=== PATIENT | female | born 1930 | race Caucasian/White ===

== ENCOUNTER 2017-10-08 10:13 | Emergency (ER) | payer MEDICARE, OTHER ==
[~2017-10-08] VITALS: Ht 157.5 cm; Wt 64.0 kg
[~2017-10-08 10:13] MED LIST: ACETAMINOPHEN325 M1 PO; ACETAMINOPHEN650 MG PO; ASPIRIN81 MG PO; B-100 COMPLEX1 EACH PO; CIPRO500 MG PO; CITRACAL + D E1 EACH PO; CRANBERRY200 MG PO; CULTURELLE1 EACH PO; LORAZEPAM0.5 MG PO; LYRICA50 MG PO; MELATONIN3 MG PO; METAMUCIL POWD174 GM PO; METRONIDAZOLE250 MG PO; MICARDIS40 MG PO; MULTIPLE VITAM1 EAC1 PO; PANTOPRAZOLE SO40 MG PO; PROCALAMINE I1000 ML IV; RANITIDINE HCL300 MG PO; SYNTHROID88 MCG PO
[2017-10-08] MEDS ORDERED: ASPIRIN 81 MG CHEW TAB PO ONE (12:00)
[2017-10-08 12:39] LABS: CREATINE KINASE 123 IU/L (29-168)
[2017-10-08] MEDS ORDERED: CIPROFLOXACIN 500 MG TAB PO SCH (17:00)
== END 2017-10-08 13:19 | disposition home or self-care (01) ==
LOC: FSED 10:13
DX: R07.89 Other chest pain (principal); N30.90 Cystitis, unspecified without hematuria; I10 Essential (primary) hypertension
CPT/HCPCS: 36415; 70450; 71046; 80053; 81003; 82550; 82553; 84484; 85025; 99285

== ENCOUNTER → 2017-10-25 | Outpatient (CLI) | payer MEDICARE, OTHER ==
--- NOTE | 2017-10-25 12:15 | Diagnostic Imaging Report ---
PROCEDURE:X-RAY PELVIS, AP VIEW COMPARISON:None. INDICATIONS:HEMATOMA, FALL FINDINGS: There are no fractures, dislocations, lytic or blastic lesions. The bones are well-mineralized. The soft-tissues are unremarkable. CONCLUSION: No acute radiographic abnormalities. Dictated by: Thierno Mendosa M.D. on 10/25/2017 at 12:20 Electronically approved by: Thierno Mendosa M.D. on 10/25/2017 at 12:20
--- NOTE | 2017-10-25 12:32 | Diagnostic Imaging Report ---
PROCEDURE:X-RAY UNILATERAL RIBS WITH CHEST X-RAY COMPARISON:Chest radiograph 01/15/17. INDICATIONS:FALL, RIGHT SIDED RIB PAIN FINDINGS: Lines/tubes: None. Lungs: Left lower lung opacity likely related to atelectasis or scarring. Patchy right basilar opacity adjacent to the rib fractures. Pleura: Trace right pleural effusion. No evidence of pneumothorax. Heart and mediastinum: The heart and the mediastinum are unremarkable. Bones and soft tissues: Dedicated right rib radiographs demonstrate minimally displaced fractures of the right eighth through tenth ribs laterally. CONCLUSION: Minimally displaced fractures of the right eighth through tenth ribs laterally with adjacent trace pleural effusion. No evidence of pneumothorax. Patchy right basilar opacity could represent atelectasis or contusion. Dictated by: DA PITT M.D. on 10/25/2017 at 12:37 Electronically approved by: DA PITT M.D. on 10/25/2017 at 12:37
== END ==
LOC: RAD 11:14
PROVIDERS: ATTEND Internal Medicine
DX: R07.89 Other chest pain (principal); W18.39XA Other fall on same level, initial encounter
CPT/HCPCS: 71101; 72170

== ENCOUNTER → 2017-11-16 | Outpatient (CLI) | payer MEDICARE ==
--- NOTE | 2017-11-16 15:47 | Diagnostic Imaging Report ---
CT Abdomen and Pelvis without contrast INDICATION: Renal calculus, recurrent UTIs TECHNIQUE: Thin collimation axial images obtained from the diaphragm to the level of the pubic symphysis without nonionic intravenous contrast. RADIATION DOSE: Total DLP: 247.63 mGy*cm Estimated effective dose: (DLP x 0.015 x size factor) mSv CTDIvol has been reviewed. It is below the limits set by the Radiation Protocol Committee (RPC). COMPARISON: CT abdomen/pelvis 04/29/2014. ABDOMEN FINDINGS: Lung Bases: Bibasilar chronic subsegmental atelectasis/scar. The heart is top normal in size.. No pericardial or pleural effusions. There is a small hiatal hernia. Liver: Normal in attenuation without mass. Gallbladder: Present and appears normal. No ductal dilatation. Pancreas: Normal attenuation without mass. Spleen: Normal size without mass. Adrenal Glands: Mild thickening of the adrenal glands without discrete nodule.. Kidneys: Right: Calculus in the lower pole measures 2 mm. No cortical mass or hydronephrosis Left: No renal calculus. Lesion in the lateral interpolar cortex measures 14 mm and 18 Hounsfield units suggestive of a cyst. This is stable. No hydronephrosis Lymph Nodes: No enlarged abdominal or periaortic lymph nodes. Aorta: Normal in diameter with scattered calcifications. PELVIS FINDINGS: Bowel: Stomach: Normal. Small Bowel: Normal in caliber with normal wall thickness. Large Bowel: Diffuse diverticulosis coli. There is mural thickening of the rectosigmoid portion of the colon without associated inflammation. No inflammation surrounding the diverticula elsewhere in the large bowel. Appendix: Not visualized and may be absent or collapsed. Bladder: No mural thickening. There is a tiny amount of intraluminal air at the dome. Ureters: No ureteral dilatation or calculus. The uterus is present and normal in morphology. No adnexal mass. Lymph nodes: No enlarged mesenteric or pelvic lymph nodes. No free fluid or fluid collection. There is laxity of the pelvic floor with inferior displacement of the pelvic organs.. Bones: Mild degenerative changes of the spine. Circumferential disc bulges throughout the lumbar spine most significant from L3-4 to L5-S1. Several perineural cysts in the sacrum are stable. No evidence of hernia. IMPRESSION: 1. Tiny right intrarenal calculus. No obstructive uropathy. Tiny amount of air in the liver dome may be from recent instrumentation or gas forming organism. 2. Diverticulosis coli. No evidence for bowel obstruction or inflammation. Small hiatal hernia. 3. Pelvic floor laxity. This is poorly evaluated by CT. Further evaluation can be made with MRI to identify the presence of a cystocele. Signed by: Dr. Ezra Rojas MD on 11/16/2017 3:44 PM
== END ==
LOC: CT 14:03
PROVIDERS: ATTEND Urology
DX: N20.0 Calculus of kidney (principal)
CPT/HCPCS: 74176

== ENCOUNTER 2018-03-30 08:57 | Observation (INO) | payer MEDICARE, OTHER ==
[~2018-03-30] VITALS: Ht 157.5 cm; Wt 55.8 kg
[2018-03-30] MEDS ORDERED: ASPIRIN 81 MG CHEW TAB PO STA (09:49)
--- NOTE | 2018-03-30 10:20 | Diagnostic Imaging Report ---
EXAMINATION: CXR 2 VIEW - [facility] INDICATION: Chest pain. COMPARISON: Chest radiograph 01/15/17. FINDINGS: TUBES and LINES: None. LUNGS/PLEURA: Lungs are well inflated. No evidence of pulmonary edema. Possible trace left pleural effusion. Mild patchy left basilar opacity. HEART AND MEDIASTINUM: The cardiomediastinal silhouette is unremarkable. Atherosclerotic calcifications of the aortic arch. BONES AND SOFT TISSUES: Diffuse osteopenia. No evidence of acute displaced fracture. There are likely two healing subacute fractures of the right lower lateral ribs. UPPER ABDOMEN: No free air under the diaphragm. IMPRESSION: Patchy left basilar opacity which could represent or scarring. Possible trace left pleural effusion. Diffuse osteopenia with subacute right lower lateral healing rib fractures. No evidence of acute displaced fracture. Signed by: Dr. Frannie Rizzo MD on 03/30/2018 10:17 AM
--- NOTE | 2018-03-30 10:22 | Diagnostic Imaging Report ---
CT BRAIN [facility] HISTORY: Dizziness COMPARISON: Head CT 11/01/2013; report from head CT dated 11/04/2015 Technique: Noncontrast axial scans were obtained from skull base to the vertex. Coronal and sagittal reconstructions obtained from the axial data. One or more of the following dose reduction techniques were used: Automated exposure control, adjustment of the mA and/or kV according to patient size, and/or utilization of iterative reconstruction technique. DISCUSSION: Scalp/Skull: Unremarkable. Brain sulci: Mildly prominent. Ventricles: Compensatory dilatation. Extra-axial spaces: No masses or fluid collections. Carotid siphon calcifications are present. Parenchyma: Mild bilateral deep white matter hypodensity is likely chronic microvascular ischemic change. Small focal hypodensity in the right putamen at the level of the anterior commissure is likely a prominent perivascular space. Otherwise, no masses, hemorrhage, or large vascular territory acute infarct. Dural sinuses: No abnormal densities. Sellar/Suprasellar region: Intact. Skull base: Intact. Incidental findings: Both ocular lenses are thinned. Trace right mastoid effusion is present. IMPRESSION: 1. No acute intracranial abnormalities. 2. Mild supratentorial chronic microvascular ischemic change. Mild generalized cerebral volume loss. Signed by: Dr. Luis Eduardo Dunn M.D. on 03/30/2018 10:18 AM
[2018-03-30] MEDS ORDERED: MORPHINE SULFATE 2 MG/ML SYR IV PRN (11:00)
[2018-03-30] MEDS ORDERED: SODIUM CHLORIDE FLUSH 10 ML SYR INJ PRN (11:00)
[2018-03-30] MEDS ORDERED: NITROGLYCERIN 0.4 MG SUBL SL PRN (11:00)
[2018-03-30] MEDS ORDERED: ONDANSETRON HCL INJ 2 MG/ML VIAL IV PRN (11:00)
[2018-03-30] MEDS ORDERED: ASPIRIN 81 MG CHEW TAB PO ONE (11:00)
--- NOTE | 2018-03-30 11:05 | NUR ---
Dr. Reveles informed of pt BP, stated ok for pt to take her home medications which includes a BP medication, Pt stated she hand not taken yet today.
[2018-03-30] MEDS ORDERED: MORPHINE SULFATE INJ 4 MG/ML INJ IV PRN (11:30)
[2018-03-30] MEDS ORDERED: FAMOTIDINE 20 MG/2 ML VIAL IV SCH (11:30)
--- NOTE | 2018-03-30 11:30 | NUR ---
ROCIO Andrade notified that we received a call from the ED stating that Dr. Peng's group was there to see the pt but the pt is at the [facility]. Informed her to call them when pt arrives on the unit so they could come back and see the pt. RN verbalized understanding.
--- NOTE | 2018-03-30 11:30 | NUR ---
ROCIO Andrade notified that pt needs a telemetry box when she arrives to the hospital. RN verbalized understanding.
[2018-03-30] MEDS ORDERED: PANTOPRAZOLE SO40 MG PO (11:45)
[2018-03-30] MEDS ORDERED: VITAMIN D31000 UNI1 PEG (11:45)
[2018-03-30] MEDS ORDERED: RANITIDINE HCL150 MG PO (11:45)
--- NOTE | 2018-03-30 12:19 | NUR ---
RCD PT BY STRETCHER FROM [facility] ER PT IS ALERT AND ORIENTED VITALS CHECKED PT RESTING ON BED NO SIGNS OF ANY DISTRESS NOTED VITALS CHECKED ADMISSION ASSESSMENT AND HISTORY DONE FAMILY AT BED SIDE INSTRUCTED PT AND FAMILY REGARDING HOSPITAL POLICY AND ROUTINE BED LOW AND LOCKED CALL LIGHT IN REACH BED LOW AND LOCKED CALL LIGHT IN REACH
[2018-03-30 12:43] VITALS: BP 172/77
[2018-03-30 14:56] VITALS: BP 119/69
[2018-03-30 15:13] VITALS: BP 119/69
[2018-03-30 16:54] LABS: CREATINE KINASE MB 0.9 ng/mL (0-5.0)
--- NOTE | 2018-03-30 16:55 | Consultation ---
DATE OF CONSULTATION: March 30, 2018 CARDIAC CONSULTATION REASON FOR CONSULTATION: Lower retrosternal chest pain, . The patient is a poor historian, but she is very delightful. HISTORY: An 87-year-old old lady who is known with hypertension, hypothyroidism and chronic GERD. We evaluated her in July 2016. At that time, she complained of episodic dizzy spells. Her Holter showed no malignant arrhythmia. Her echocardiogram showed preserved left ventricular systolic function. Plan was for observation and evaluate her progress. It seems in December 2016 she had rectal bleed and she was admitted to this institution. She was seen and evaluated by Dr. Wells, and she is followed in his office. A week ago, she had lower retrosternal and more of epigastric heartburn like symptoms. She was given Protonix. Yesterday, she had repeat of this pain. This is lower retrosternal and very vague in characteristic. Possible burn. Possible dull. She cannot describe it. She was worried about it. She went to the local emergency room and her 1st set of cardiac enzymes is normal. Her hemoglobin is 12.8 and hematocrit 39%. She denied having any hematemesis. No melena. There is no nausea. No vomiting. The pain is very dull. She cannot describe. There is no recent travel. The patient is not staying most of the time in bed. She is ambulatory. HOME MEDICATIONS 1. Aspirin 81 mg a day. 2. Benicar 20 mg twice a day. 3. Synthroid 80 mcg a day. 4. Protonix 40 mg a day. 5. Lorazepam 1 mg p.r.n. 6. Lyrica 75 mg a day. 7. Vitamins. 8. Metamucil as needed. ALLERGIES: MORPHINE AND SULFA. PAST MEDICAL HISTORY 1. Hypertension. 2. Hypothyroidism. 3. Dizzy spells. 4. Peripheral neuropathy. 5. Arthritis. 6. Anxiety. 7. Tonsillectomy. 8. Appendectomy. 9. thyroidectomy with partial parathyroidectomy. 10. Kidney stone. 11. Cataract surgery. 12. Colon surgery blockage. 13. History of tracheostomy, probably at the time of her thyroidectomy and parathyroidectomy. SOCIAL HISTORY: She is a . She is nonsmoker. She is not an alcohol drinker. She is retired. REVIEW OF SYSTEMS GENERAL: No fever. No chills. She is ambulatory. She is able to do her activities. No weight loss. HEENT: Remarkable for decreased hearing. She uses hearing aids. PULMONARY: As per acute illness. CARDIAC: As per acute illness. No syncope. No presyncope. No angina. GI: Remarkable for GERD symptoms and hemorrhoids at times. HEMATOLOGY: No easy bruising or bleeding. : No hematuria. No dysuria. MUSCULOSKELETAL: Knee pain. PERIPHERAL VASCULAR: Leg swelling, mainly at the end of the day. NEUROLOGICAL: No speech abnormality. No headache. FAMILY HISTORY: Mother of old age at age 95. Father at age 66 with cerebral hemorrhage. Two children, 1 son and 1 daughter. PHYSICAL EXAMINATION VITALS: Height of 5 feet 2 inches, weight of 127 pounds, blood pressure 120/70, heart rate of 80, respiratory rate of 18, afebrile. HEENT: Pupils are reactive. Decreased hearing is noted. NECK: No elevation of jugular venous pulsation. No bruit. CHEST: Clear to auscultation and percussion. HEART: PMI in 5th left intercostal space. Normal 1st and 2nd heart sounds. There is an early systolic murmur. ABDOMEN: Soft with good bowel sounds. No organomegaly. No abdominal bruits. EXTREMITIES: No cyanosis. No clubbing. No edema. NEUROLOGIC: Awake, alert and oriented. Able to move her extremities at ease. No localized deficits. IMPRESSION AND PLAN 1. Chest pain: Seems to be atypical. 2. History of presyncope and dizzy spells. 3. Dyspnea on exertion. 4. Hypertension. 5. Unsteady gait: Patient uses a cane to walk. Cardiac lazo, recommendation is serial cardiac enzymes. Keeping patient on telemetry. Checking stool for occult blood and repeating lab in the morning, including CBC, lipid profile, etc. Differential diagnosis is discussed and explained. Questions are answered. Job#: [id number] ABDIRAHMAN
[2018-03-30] MEDS ORDERED: NON-FORMULARY MEDICATION (Ranitidine Hcl 300 MG) PO SCH (17:00)
[2018-03-30] MEDS ORDERED: LORAZEPAM 0.5 MG TAB PO SCH (17:00)
[2018-03-30] MEDS: TELMISARTAN 40 MG TAB PO SCH (17:00)
[2018-03-30 17:03] VITALS: BP 189/79
[2018-03-30] MEDS: PREGABALIN 50 MG CAP PO SCH (17:10)
[2018-03-30] MEDS ORDERED: LORAZEPAM 1 MG TAB PO PRN (17:15)
[2018-03-30] MEDS: FAMOTIDINE 20 MG TAB PO SCH (17:30)
--- NOTE | 2018-03-30 18:08 | History and Physical ---
CHIEF COMPLAINT: Chest pain. HISTORY OF PRESENT ILLNESS: This is an 87-year-old white woman who presents to [facility] with 1 week history of non-radiating retrosternal chest discomfort. Patient states she suffered a mechanical fall the day before the chest pain began. Patient states she may have struck her chest wall on an object during her fall. The patient denies any associated shortness of breath or cough. She also denies any nausea or diaphoresis. A 12-lead EKG done in the emergency room did not reveal any acute changes. Initial cardiac enzymes are completely normal. Patient was seen by cardiology, Dr. Bari Peng, who recommended that we do serial cardiac enzymes. Chest x-ray revealed possible left trace pleural effusion with patchy left basilar opacity, but these are chronic findings. The patient also underwent a CT of the brain that did not reveal any acute intracranial abnormalities. Patient was admitted for further issues. REVIEW OF SYSTEMS GENERAL: Weight has been stable. She denies any fever or chills. HEENT: No headaches. No visual changes. CARDIOVASCULAR/RESPIRATORY: Chest pain as per HPI. No shortness of breath or cough. GI: No nausea, vomiting, diarrhea, or constipation, but she does have great symptoms. : No UTI. NEUROMUSCULAR: Complains of peripheral neuropathic pain in her feet. ALLERGIES SULFA ANTIBIOTICS AND MORPHINE. HOME MEDICATIONS 1. Pantoprazole 40 mg every morning. 2. Ranitidine 150 mg twice a day. 3. Lyrica 50 mg every night. 4. Telmisartan 20 mg b.i.d. 5. Nitroglycerin 0.4 mg 1 every 5 minutes p.r.n. chest pain. 6. Clonazepam 1 mg at night as needed for anxiety or insomnia. 7. Multivitamins daily. 8. Vitamin B complex 9. Vitamin D3 1000 units daily. 10. Cranberry oral capsules daily. PAST MEDICAL HISTORY 1. Peripheral neuropathy. 2. Chronic Headaches. 3. Hypertensive heart disease. 4. Diverticular disease. 5. Hiatal hernia. 6. History of kidney stones. 7. Insomnia. 8. Anxiety disorder. 9. Hypothyroidism. SURGICAL HISTORY 1. Exploratory laparotomy with sigmoid resection in 2010. 2. Thyroidectomy. 3. Parathyroidectomy. 4. Bladder surgery. 5. Kidney stone removal. 6. Cataract surgeries. 7. Tonsillectomy. 8. Bilateral tubal ligation. FAMILY HISTORY: Noncontributory. SOCIAL HISTORY: This woman is a . She currently lives alone. The adult daughter is present and states this time they are attempting to place the patient in assisted living facility. Patient has no history of tobacco or alcohol use. Patient adult son and adult daughter are very much involved in her health care. PHYSICAL EXAMINATION GENERAL: She is awake, alert and fully oriented. She is very pleasant, but she does seem to get confused easily. VITALS: Her blood pressure is 132/77, pulse 78, respiratory rate is 18, oxygen saturation 98%, temperature 96.9, height is 5 feet 2 inches, weight is 127 pounds, and BMI 23. INTEGUMENT: Skin is warm and dry. No pallor or diaphoresis. HEENT: Anicteric sclerae. Moist mucous membranes. NECK: Supple. CARDIOVASCULAR: Distant heart sounds. Regular rate and rhythm. LUNGS: No rales. No rhonchi. No wheezing. SPINE/TORSO: Patient has tenderness on palpating the sternal area. She also has minimal bruising just to the left of the sternum. ABDOMEN: Benign. Normal bowel sounds. Nontender. Negative Deluca sign when palpated in the right upper quadrant area. EXTREMITIES: No edema or deformity. DIAGNOSES 1. Atypical chest pain. 2. Gastroesophageal reflux disease. 3. Hypertensive heart disease. PLAN 1. Reassurance. 2. Empathetic listening. 3. Rule out myocardial infection. 4. Follow cardiology's recommendation. 5. Gentle blood pressure controlled. 6. Continue anti-GERD medication. We will most likely discharge home in the morning. I spent 45 minutes in the care of this patient. Job#: [id number] YELENA ALONZO
--- NOTE | 2018-03-30 18:48 | NUR ---
PT RESTING ON BED BED SIDE REPORT GIVEN TO INCOMING NURSE
[2018-03-30 20:00] VITALS: BP 173/74
[2018-03-30 23:01] LABS: CREATINE KINASE MB 0.7 ng/mL (0-5.0)
[2018-03-31 00:40] VITALS: BP 126/61
[2018-03-31 03:40] VITALS: BP 136/65
[2018-03-31 05:02] LABS: BASOPHILS # (AUTO) 0.1 (0.0-0.1); BASOPHILS % 0.6 % (0.0-1.0); EOSINOPHILS # (AUTO) 0.2 (0.0-0.4); EOSINOPHILS % 2.6 % (0.0-6.0); HEMATOCRIT 34.7 % (34.2-44.1); HEMOGLOBIN 11.8 g/dL (12.0-16.0); LYMPHOCYTES # (AUTO) 1.2 (1.0-3.2); MEAN CORPUSCULAR HEMOGLOBIN 29.1 pg (28-32); MEAN CORPUSCULAR VOLUME 85.7 fL (81-99); MONOCYTES # (AUTO) 0.8 (0.2-0.8); MONOCYTES % 8.2 % (4.4-11.3); NEUTROPHILS % 74.8 % (38.7-80.0); PLATELET COUNT 220 x10e3/uL (140-360); RED BLOOD COUNT 4.05 x10e6/uL (3.6-5.1); RED CELL DISTRIBUTION WIDTH 13.7 % (11.7-14.4)
[2018-03-31 05:20] LABS: ALANINE AMINOTRANSFERASE 13 IU/L (0-55); ALBUMIN 3.1 g/dL (3.5-5.0); ALKALINE PHOSPHATASE 78 IU/L (40-150); ANION GAP 13.1 mmol/L (8-16); BLOOD UREA NITROGEN 11 mg/dL (7-26); BUN/CREATININE RATIO 14 (6-25); CALCIUM 9.3 mg/dL (8.4-10.2); CARBON DIOXIDE 25 mmol/L (22-29); CHLORIDE 101 mmol/L (98-107); CREATININE, SERUM 0.81 mg/dL (0.57-1.11); EST GLOMERULAR FILTRATION RATE > 60 ML/MIN (60-); GLUCOSE 89 mg/dL (74-118); POTASSIUM 4.1 mmol/L (3.5-5.1); SODIUM 135 mmol/L (136-145)
[2018-03-31 05:38] LABS: CHOLESTEROL 197 MD/DL (0-199); CREATINE KINASE 76 IU/L (29-168); HDL CHOLESTEROL 65 MG/DL (40-60); LDL CHOLESTEROL 114 MG/DL (60-130); TRIGLYCERIDES 89 MG/DL (0-149)
[2018-03-31] MEDS ORDERED: LEVOTHYROXINE SODIUM 88 MCG TAB PO SCH ×2 (06:00)
[2018-03-31] MEDS: PANTOPRAZOLE SOD 40 MG TABEC PO SCH ×2 (06:07→06:08)
--- NOTE | 2018-03-31 07:00 | NUR ---
RCD PT AT BED PT IS ALERT AND ORIENTED PT RESTING ON BED NO SIGNS OF ANY DISTRESS NOTED IV PATENT BED LOW AND LOCKED CALL LIGHT IN REACH
[2018-03-31] MEDS ORDERED: PANTOPRAZOLE SOD 40 MG TABEC PO SCH ×2 (07:30→09:00)
[2018-03-31 08:22] VITALS: BP 126/57
[2018-03-31] MEDS: TELMISARTAN 40 MG TAB PO SCH (08:27)
[2018-03-31] MEDS: FAMOTIDINE 20 MG TAB PO SCH (08:28)
[2018-03-31 08:30] VITALS: BP 126/57
[2018-03-31] MEDS ORDERED: PREGABALIN 50 MG CAP PO SCH (09:00)
[2018-03-31] MEDS ORDERED: ASPIRIN 81 MG ENTERIC COATED PO SCH (09:00)
[2018-03-31] MEDS ORDERED: CHOLECALCIFEROL 1,000 UNIT TAB PO SCH (09:00)
--- NOTE | 2018-03-31 10:23 | NUR ---
Met earlier with pt and her family. Educated on [employer] letter and they verbalized understanding and signed. Signed copy to pt, original to chart. They were not happy with being observation due to costs. They hope to go home today
[2018-03-31 12:18] VITALS: BP 149/74
[2018-03-31] MEDS: PREGABALIN 50 MG CAP PO SCH (13:00)
--- NOTE | 2018-03-31 14:07 | NUR ---
PT WENT HOME IN SAFE CONDITION WITH HER DAUGHTER
--- NOTE | 2018-03-31 14:25 | Discharge Summary ---
ADMISSION DIAGNOSES 1. Atypical chest pain. 2. Hypertensive heart disease. 3. Gastroesophageal reflux disease. 4. Peripheral neuropathy. 5. Vertigo. DISCHARGE DIAGNOSES 1. Atypical chest pain, resolved. 2. Gastroesophageal reflux disease. 3. Hypertensive heart disease. 4. Peripheral neuropathy. 5. Vertigo with right middle ear effusion. HOSPITAL COURSE: This is an 87-year-old white woman who was initially admitted to [facility] with the diagnosis of atypical chest pain. She also has episodes of dizziness and possible presyncopal symptoms. She has also recently been diagnosed with vertigo with right-sided middle ear effusion. Moreover, she was found to have severe GERD type symptoms. Thus, she was started on pantoprazole every morning and ranitidine 150 mg twice a day. During this hospitalization, patient had serial cardiac enzymes as well as electrocardiogram done, which did not reveal any evidence of acute myocardial ischemia or infarction. Patient was seen by her technical instructor, Dr. Angel Taveras. The technical instructor agreed with the current plan of care. Patient's blood pressure was controlled during this hospitalization with her home medications. On the day of discharge, patient's complete blood count and comprehensive metabolic profile were all within normal limits. Serial cardiac enzymes did not reveal any evidence of acute myocardial ischemia or infarction as previously stated. TSH was slightly low at 0.239. LDL cholesterol was 114 mg/dL. Patient's B-type natriuretic peptide level was normal at 71. Patient had a chest x-ray done on admission which revealed old patchy left basilar opacity that was likely scarring. CT of the head during this hospitalization did not reveal any acute intracranial abnormality. CONDITION ON DISCHARGE: Stable. DISCHARGE MEDICATIONS 1. Ranitidine 150 mg twice a day. 2. Vitamin D3 2000 units daily. 3. Telmisartan 20 mg b.i.d. 4. Levothyroxine 88 mcg daily. 5. Pregabalin 50 mg daily. 6. Pantoprazole 40 mg every morning (30 minutes before her first meal a day). 7. Lorazepam 1 mg daily as needed for anxiety. 8. Meclizine 25 mg b.i.d. p.r.n. dizziness. 9. Multivitamin once daily. 10. Vitamin B complex once daily. 11. Cranberry oral capsule once daily. FOLLOWUP INSTRUCTIONS: Patient is instructed to follow up with Dr. Lindquist in the next 2 to 3 weeks. KARISSA LINDQUIST MD Job#: [id number] YOBANY cc:ANGEL TAVERAS MD
== END 2018-03-31 14:07 | disposition home or self-care (01) ==
LOC: FSED 08:57 → ERHOLD 10:49 → MED/SURG2 12:39
PROVIDERS: ADMIT Internal Medicine; ATTEND Internal Medicine
DX: R07.89 Other chest pain (principal); E03.9 Hypothyroidism, unspecified; G62.9 Polyneuropathy, unspecified; K21.9 Gastro-esophageal reflux disease without esophagitis; Z87.442 Personal history of urinary calculi; Z88.5 Allergy status to narcotic agent; Z88.2 Allergy status to sulfonamides; I11.9 Hypertensive heart disease without heart failure; R26.81 Unsteadiness on feet; F41.9 Anxiety disorder, unspecified; R42 Dizziness and giddiness; H74.8X1 Other specified disorders of right middle ear and mastoid
CPT/HCPCS: 36415 ×2; 70450; 71046; 80048; 80053; 80061; 80076; 81003; 82270; 82550 ×2; 82553 ×2; 83880; 84443; 84484 ×2; 85025 ×2; 93005; 99284; G0378 ×2; S0164